=== PATIENT | male | born 1975 | race African-American/Black ===

== ENCOUNTER 2021-08-26 13:30 | Emergency (ER) | payer SELFPAY ==
[~2021-08-26] VITALS: Ht 170.2 cm; Wt 75.7 kg
--- NOTE | 2021-08-26 14:00 | NUR ---
Patient came in to the er c/o feels uncomfortable when urinating started this morning. On room air, breathing evenly and unlabored. connected to the monitor and pulse ox. kept comfortable, will continue to monitor accordingly.
[2021-08-26 14:02] LABS: BILIRUBIN,URINE Negative (NEGATIVE); COLOR,URINE YELLOW (YELLOW); LEUKOCYTE ESTERASE ,URINE Negative (NEGATIVE); NITRITE, URINE Negative (NEGATIVE); PROTEIN,URINE Negative (NEGATIVE); UGLUCOSE Negative (NEGATIVE); UROBILINOGEN,URINE 0.2 EU/dL (0.2)
--- NOTE | 2021-08-26 14:38 | NUR ---
bladder scanned done and noted 120 ml, md informed and aware.
[2021-08-26] MEDS ORDERED: PHEN-705 PO (14:41)
[2021-08-26] MEDS ORDERED: TAMS-12 PO (14:41)
[2021-08-26] MEDS ORDERED: CIPR-262 PO (14:42)
[2021-08-26 14:58] VITALS: BP 122/81
--- NOTE | 2021-08-26 14:58 | NUR ---
Patient discharged to home in stable condition. Written and verbal after care instructions given. Patient verbalizes understanding of instruction.
== END 2021-08-26 14:58 | disposition home or self-care (01) ==
LOC: ER 13:33
DX: R30.0 Dysuria (principal); N40.0 Benign prostatic hyperplasia without lower urinary tract symptoms; Z98.890 Other specified postprocedural states; Z88.2 Allergy status to sulfonamides; Z79.899 Other long term (current) drug therapy
CPT/HCPCS: 87086-TC